=== PATIENT | male | born 1960 | race Caucasian/White ===

== ENCOUNTER 2021-07-10 17:00 | Emergency (ER) | payer MEDICARE ==
[2021-07-10 17:13] LABS: BASOPHIL 0.5 % (0-2); EOSINOPHIL 0 % (0-5); HCT 46.1 % (42.0-52.0); LYMPHOCYTE 41.7 % (15-48); MCH 30.5 pg (25.0-31.0); MCHC 32.5 g/dL (32.0-36.0); MCV 93.9 fL (78.0-100.0); MONOCYTE 10.1 % (0-12); MPV 9.1 fL (6.0-9.5); NEUTROPHIL 47.4 % (41-80); NRBC 0; PLT 271 K/uL (150-400); RBC 4.91 M/uL (4.70-6.00); RDW 13.6 % (11.5-14.0); WBC 7.6 K/uL (4.0-10.5)
[2021-07-10 17:26] LABS: INR 1.04 (0.9-1.2); PTT 26.8 SECONDS (24.4-34.7)
[2021-07-10 17:34] LABS: ALBUMIN 3.4 g/dL (3.4-5.0); BILIRUBIN - TOTAL 0.2 mg/dL (0.2-1.0); CREATININE 0.95 mg/dL (0.67-1.17); GLOBULIN (CALCULATION) 3.8 g/dL; POTASSIUM 4.2 mmol/L (3.5-5.1); TOTAL PROTEIN 7.2 g/dL (6.4-8.2)
[2021-07-10] MEDS ORDERED: NITROQUIK SL0.4 MG SL (20:31)
== END 2021-07-10 20:59 | disposition home or self-care (01) ==
LOC: FER 17:00
PROVIDERS: Emergency Medicine
DX: I20.9 Angina pectoris, unspecified (principal); I10 Essential (primary) hypertension; F17.210 Nicotine dependence, cigarettes, uncomplicated
CPT/HCPCS: 36415; 71045; 80053; 84484; 85025; 85610; 85730; 93005